=== PATIENT | female | born 1965 | race Caucasian/White ===

== ENCOUNTER 2022-05-02 15:13 | Emergency (ER) | payer OTHER ==
--- NOTE | 2022-05-02 16:07 | EDPHYS ---
Physician Documentation [facility] Name: Johnny Yo Age: 57 yrs Sex: Female : 1965 Arrival Date: 05/02/2022 Time: 15:16 Bed Waiting Private MD: ADRIANA Physician Vish Burgess HPI: 05/02 19:44 This 57 yrs old Female presents to ER via Ambulatory with complaints of Toothache. kb 19:44 The patient presents with pain, redness, swelling. The problem is located in the upper kb left second molar (#15) and upper left first molar (#14). Onset: The symptoms/episode began/occurred 2 day(s) ago. Duration: The symptoms are continuous. Modifying factors: The symptoms are alleviated by nothing, the symptoms are aggravated by nothing. Associated signs and symptoms: Pertinent positives: pain, redness in area, swelling. Severity of symptoms: At their worst the symptoms were moderate, in the emergency department the symptoms are unchanged. The patient has not experienced similar symptoms in the past. The patient has not recently seen a physician. 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 - Social history:: Smoking status: Reported history of juuling and/or vaping. ROS: 19:44 Constitutional: Negative for fever, chills, and weight loss. kb 19:44 ENT: Positive for dental pain. 19:44 All other systems are negative. Exam: 19:44 Constitutional: This is a well developed, well nourished patient who is awake, alert, kb and in no acute distress. Head/Face: Normocephalic, atraumatic. Respiratory: Respirations even and unlabored. No increased work of breathing. Talking in full sentences Skin: Warm, dry with normal turgor. Normal color. MS/ Extremity: Pulses equal, no cyanosis. Neurovascular intact. Full, normal range of motion. Neuro: Awake and alert, GCS 15, oriented to person, place, time, and situation. Moves all extremities. Normal gait. Psych: Awake, alert, with orientation to person, place and time. Behavior, mood, and affect are within normal limits. 19:44 ENT: Dental exam: dental caries, gum swelling, pain, that is moderate, specifically in the upper left first molar (#14) and upper left second molar (#15). Vital Signs: 15:23 BP 158 / 94; Pulse 77; Resp 17; Temp 97.9; Pulse Ox 100% ; Weight 61.23 kg; Height 5 ap3 ft. 5 in. (165.10 cm); Pain 8/10; 15:23 Body Mass Index 22.46 (61.23 kg, 165.10 cm) ap3 MDM: 16:06 Patient medically screened. kb 19:43 Data reviewed: vital signs, nurses notes. Data interpreted: Pulse oximetry: on room air kb is 100 %. Interpretation: normal. Counseling: I had a detailed discussion with the patient and/or guardian regarding: the historical points, exam findings, and any diagnostic results supporting the discharge/admit diagnosis, the need for outpatient follow up, a dentist, to return to the emergency department if symptoms worsen or persist or if there are any questions or concerns that arise at home. Administered Medications: 16:11 Drug: Augmentin (Amoxicillin-Clavulanate) 875 mg Route: PO; ap3 16:11 Drug: Ketorolac 30 mg Route: IM; Site: right deltoid; ap3 Disposition Summary: 05/02/22 16:06 Discharge Ordered Location: Home kb Condition: Stable kb Diagnosis - Periapical abscess without sinus kb Followup: kb - With: Emergency Department - When: As needed - Reason: Worsening of condition Followup: kb - With: Private Physician - When: 2 - 3 days - Reason: Recheck today's complaints, Continuance of care, Re-evaluation by your physician Discharge Instructions: - Discharge Summary Sheet kb - Dental Pain, [id number] kb - Dental Abscess, [id number] kb Forms: - Medication Reconciliation Form kb - Thank You Letter kb - Antibiotic Education kb - Prescription Opioid Use kb Prescriptions: - Augmentin 875-125 mg Oral Tablet - take 1 tablet by ORAL route every 12 hours for 10 days; 20 tablet; Refills: 0, kb Product Selection Permitted - Diclofenac Sodium 75 mg Oral tablet,delayed release (DR/EC) - take 1 tablet by ORAL route 2 times per day As needed; 30 tablet; Refills: 0, kb Product Selection Permitted Signatures: Dariana Cruz, TRAINS SERVICE CONDUCTOR-C TRAINS SERVICE CONDUCTOR-Ckb Jeanie Napoles, RN RN ap3
--- NOTE | 2022-05-02 16:07 | ER ---
Nurse's Notes [facility] Name: Johnny Yo Age: 57 yrs Sex: Female : 1965 Arrival Date: 05/02/2022 Time: 15:16 Bed Waiting Private MD: Diagnosis: Periapical abscess without sinus Presentation: 05/02 15:23 Chief complaint: Patient states: she has been experiencing pain from a broken/abscessed ap3 tooth for 2 days now. Patient states it is on the right upper side of her mouth. Coronavirus screen: At this time, the client does not indicate any symptoms associated with coronavirus-19. Ebola Screen: No symptoms or risks identified at this time. Initial Sepsis Screen: Does the patient meet any 2 criteria? No. Patient's initial sepsis screen is negative. Does the patient have a suspected source of infection? No. Patient's initial sepsis screen is negative. Risk Assessment: Do you want to hurt yourself or someone else? Patient reports no desire to harm self or others. Onset of symptoms was April 30, 2022. 15:23 Method Of Arrival: Ambulatory ap3 15:23 Acuity: KAVEH 4 ap3 Triage Assessment: 15:25 General: Appears uncomfortable, Behavior is anxious, restless. Pain: Complains of pain ap3 in mouth Pain currently is 8 out of 10 on a pain scale. at worst was 10 out of 10 on a pain scale. Pain began gradually, 2-3 days ago. EENT: Reports pain in mouth. Neuro: Level of Consciousness is awake, alert, obeys commands, Oriented to person, place, time, situation, Appropriate for age Gait is steady, Speech is normal. Cardiovascular: Patient's skin is warm and dry. Respiratory: Airway is patent Respiratory effort is even, unlabored, Respiratory pattern is regular, symmetrical. 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 - Social history:: Smoking status: Reported history of juuling and/or vaping. Screenin:26 Abuse screen: Denies threats or abuse. Nutritional screening: No deficits noted. ap3 Tuberculosis screening: No symptoms or risk factors identified. 16:04 Fall Risk None identified. ap3 Vital Signs: 15:23 BP 158 / 94; Pulse 77; Resp 17; Temp 97.9; Pulse Ox 100% ; Weight 61.23 kg; Height 5 ap3 ft. 5 in. (165.10 cm); Pain 8/10; 15:23 Body Mass Index 22.46 (61.23 kg, 165.10 cm) ap3 ED Course: 15:16 Patient arrived in ED. ja2 15:25 Triage completed. ap3 15:26 Arm band placed on left wrist. ap3 15:48 Dariana Cruz FNP-C is PHCP. kb 15:48 Vish Burgess MD is Attending Physician. kb 16:04 Patient has correct armband on for positive identification. Pulse ox on. NIBP on. ap3 16:04 No provider procedures requiring assistance completed. Patient did not have IV access ap3 during this emergency room visit. Administered Medications: 16:11 Drug: Augmentin (Amoxicillin-Clavulanate) 875 mg Route: PO; ap3 16:11 Drug: Ketorolac 30 mg Route: IM; Site: right deltoid; ap3 Medication: 16:04 VIS not applicable for this client. ap3 Outcome: 16:06 Discharge ordered by . kb 16:14 Discharged to home ambulatory. ap3 16:14 Condition: good 16:14 Discharge instructions given to patient, Instructed on discharge instructions, follow up and referral plans. Demonstrated understanding of instructions, follow-up care, medications, Prescriptions given X 2. 16:14 Patient left the ED. ap3 Signatures: Dariana Cruz FNP-C FNP-Ckb Prokisch, Amanda, RN RN ap3 Brigitte Sheehan ja2
[2022-05-02] MEDS ORDERED: KETOROLAC 30 MG/ML INJ ONE (16:13)
[2022-05-02] MEDS ORDERED: AMOX/K CLAV 875 MG TAB ONE (16:15)
[2022-05-02 16:55] VITALS: BP 158/94; TEMP 97.9; O2SAT 100
== END 2022-05-02 16:14 | disposition home or self-care (01) ==
LOC: ER 15:13
DX: K04.7 Periapical abscess without sinus (principal); Z88.8 Allergy status to other drugs, medicaments and biological substances
CPT/HCPCS: 96372; 99283

== ENCOUNTER 2022-12-08 18:08 | Emergency (ER) | payer OTHER ==
--- OUTSIDE RECORDS SUMMARY | 2022-12-08 18:11 | XMS REPORT | Continuity of Care Document ---
:1965 Author Organization [facility] t Address [address] [place] [address] Care Team Providers Name Role Phone [facility] Primary Care Physician KYRIE HURST Attending Clinician Unavailable Jewels Alvarado PA-C Attending Clinician Kyrie Mireles Attending Clinician Nataliia Us RN Attending Clinician Bryn Lechuga DO Attending Clinician ADELAIDE JORDAN Attending Clinician Unavailable EDUARDO COTTER Attending Clinician Unavailable Payers Payer Name Policy Type Policy Number Effective Date Expiration Date S [facility] [id number] 2017 00:00:00 PLUS Problems Condition Condition Condition Status Onset Resolution Last Treating Co mments Source Name Details Category Date Date Treatment Clinician Date Traumatic Traumatic Disease Active Overview: Univers rupture of rupture of 07-09 Form[place] ity of tendon of tendon of 00:00: g of this [place] thumb, thumb, 00 note Medical right, right, might be Branch initial initial different encounter encounter from the original. Added automatic ally from request for surgery [id number] Other Other Disease Active Overview: Univer s closed closed 8-17 Formattin ity of intra-hussein intra-hussein 00:00: g of this [place] cular cular 00 note Medical fracture fracture might be Bran ch of distal of distal different end of end of from the right right original. radius, radius, Added initial initial automatic encounter encounter ally from request for surgery [id number] Allergies, Adverse Reactions, Alerts Allergy Allergy Status Severity Reaction(s) Onset Inactive Treating Comm ents Source Name Type Date Date Clinician Iodine Propensi Active 2016-[address] [facility] adverse [facility]: Medical Containi reaction 00 [place] ng s Products Iodine Propensi Active Anaphylaxis Uni vers ty to 04-26 ity of adverse 00:00: [place] reaction 00 Medical s Branch IODINE DRUG Active Anaphylaxis Unive rs INGREDI 04-26 ity of 00:00: [place] 00 [facility] Social History Social Habit Start Date Stop Date Quantity Comments Source Exposure to 2022-04-27 2022-05-07 Not sure [facility] SARS-CoV-2 00:00:00 20:56:00 [facility] (event) [place] Tobacco use and 2017-08-20 2017-08-[address] [facility] exposure 00:00:00 00:00:00 [facility] Alcohol intake 2017-08-20 2017-08-[address] [facility] 00:00:00 00:00:00 non-drinker of [facility] nter alcohol (finding) Sex Assigned At [address] [facility] 00:00:00 00:00:00 [facility] Smoking Status Start Date Stop Date Source Never smoker [facility] Light tobacco smoker 2017-07-10 00:00:00 [facility] ity of [place] [facility] Medications Ordered Filled Start Stop Current Ordering Indication Dosage Frequency Signature Comments Components Source Medication Medication Date Date Medication? Clinician (SIG) Name Name amoxicillin Yes Take by Uni vers /potassium 05-07 mouth. ity of clav 20:55: [place] (AUGMENTIN 42 Medical ORAL) [place] dicyclomine 2020- No 20mg 20 mg, Uni vers (BENTYL) 05-29 Oral, ity of tablet 20 19:30: 19:30 ONCE, 1 [place] mg 00 :00 dose, [facility] Medical 05/29/20 at Branch 1430, Routine ondansetron Yes [id number] 4mg Take 1 Univers 4 mg 05-29 08 tablet by ity of disintegrat 00:00: mouth [place] ing tablet 00 every 8 Medica l (eight) Branch hours as needed for Nausea and Vomiting (N/V). ondansetron 2019-0 Yes [id number] 4mg Take 1 Univers 4 mg 7-27 08 tablet by ity of disintegrat 00:00: mouth [place] ing tablet 00 every 8 Medica l (eight) Branch hours as needed for Nausea and Vomiting (N/V). ondansetron 2019-0 Yes [id number] 4mg Take 1 Univers 4 mg 7-27 08 tablet by ity of disintegrat 00:00: mouth [place] ing tablet 00 every 8 Medica l (eight) Branch hours as needed for Nausea and Vomiting (N/V). ESCITALOPRA 2017-0 Yes Take by Uni vers M OXALATE 5-21 mouth. ity of (LEXAPRO 01:32: [place] ORAL) 28 Medical Branch ESCITALOPRA 2017-0 Yes Take by Uni vers M OXALATE 5-21 mouth. ity of (LEXAPRO 01:32: [place] ORAL) 28 Medical Branch DULOXETINE 2017-0 Yes Take by Univ ers HCL 5-21 mouth. ity of (CYMBALTA 01:30: [place] ORAL) 39 Medical Branch FLUoxetine Yes 40mg Take 40 mg U nivers (PROZAC) 40 5-21 by mouth ity of mg capsule 01:30: daily. [place] [address] Medical Branch QUETIAPINE 0 Yes Take by Univ ers FUMARATE 5-21 mouth as ity of (SEROQUEL 01:30: needed. [place] ORAL) 39 Medical Branch gabapentin 0 Yes 900mg Take 900 Un mady 300 mg 5-21 mg by ity of capsule 01:30: mouth 3 [place] [address] (three) Medical times Branch daily. DULOXETINE 2017-0 Yes Take by Univ ers HCL 5-21 mouth. ity of (CYMBALTA 01:30: [place] ORAL) 39 Medical Branch FLUoxetine 0 Yes 40mg Take 40 mg U nivers (PROZAC) 40 5-21 by mouth ity of mg capsule 01:30: daily. [place] [address] Medical Branch QUETIAPINE 2017-0 Yes Take by Univ ers FUMARATE 5-21 mouth as ity of (SEROQUEL 01:30: needed. [place] ORAL) 39 Medical Branch gabapentin 2017-0 Yes 900mg Take 900 Un mady 300 mg 5-21 mg by ity of capsule 01:30: mouth 3 [place] [address] (three) Medical times Branch daily. ESCITALOPRA 2018-0 Yes Take by Uni vers M OXALATE 5-20 mouth. ity of (LEXAPRO 20:32: [place] ORAL) 28 Medical Branch gabapentin 2017-0 Yes 900mg Take 900 Un mady 300 mg 5-20 mg by ity of capsule 20:30: mouth 3 [place] [address] (three) Medical times Branch daily. DULOXETINE 2017-0 Yes Take by [facility] ers HCL 5-20 mouth. ity of (CYMBALTA 20:30: [place] ORAL) 39 Medical Branch FLUoxetine Yes 40mg Take 40 mg U nivers (PROZAC) 40 5-20 by mouth ity of mg capsule 20:30: daily. [place] [address] Medical Branch QUETIAPINE 2017-0 Yes Take by [facility] ers FUMARATE 5-20 mouth as ity of (SEROQUEL 20:30: needed. [place] ORAL) 39 Medical Branch Sumatriptan 2016-11 Yes 6mg SQ at U nivers Succinate 6 1-10 the onset ity of mg/0.5 mL 00:00: of [place] NfIj 00 headache. Medical Okay to Branch repeat after 1 hour ZOLMitripta 2016-11 Yes 1 spray in Univers n 5 mg 1-10 1 nostril ity of nasal 00:00: at the [place] solution 00 onset of Medical headache. Branch Repeat once after 2 hours if needed Sumatriptan 2016-11 Yes 6mg SQ at U nivers Succinate 6 1-10 the onset ity of mg/0.5 mL 00:00: of [place] NfIj 00 headache. Medical Okay to Branch repeat after 1 hour ZOLMitripta 2016-11 Yes 1 spray in Univers n 5 mg 1-10 1 nostril ity of nasal 00:00: at the [place] solution 00 onset of Medical headache. Branch Repeat once after 2 hours if needed Sumatriptan 2016-11 Yes 6mg SQ at U nivers Succinate 6 1-10 the onset ity of mg/0.5 mL 00:00: of [place] NfIj 00 headache. Medical Okay to Branch repeat after 1 hour ZOLMitripta 2016-11 Yes 1 spray in Univers n 5 mg 1-10 1 nostril ity of nasal 00:00: at the [place] solution 00 onset of Medical headache. Branch Repeat once after 2 hours if needed HYDROcodone 2017-0 Yes 1{tbl} Take 1 Un mady -acetaminop 9-08 tablet by ity of hen (NORCO) 00:00: mouth [place] 10-325 mg 00 every 6 Medical tablet (six) Branch hours as needed for Pain (scale 4-6) or Pain (scale 7-10). HYDROcodone Yes 1{tbl} Take 1 Un mady -acetaminop 9-08 tablet by ity of hen (NORCO) 00:00: mouth [place] 10-325 mg 00 every 6 Medical tablet (six) Branch hours as needed for Pain (scale 4-6) or Pain (scale 7-10). HYDROcodone Yes 1{tbl} Take 1 Un mady -acetaminop 9-08 tablet by ity of hen (NORCO) 00:00: mouth [place] 10-325 mg 00 every 6 Medical tablet (six) Branch hours as needed for Pain (scale 4-6) or Pain (scale 7-10). Vital Signs Vital Name Observation Time Observation Value Comments Source Systolic blood 2022-05-08 01:57:00 145 [facility]Hg[facility] 2022-05-08 01:57:00 82 mm[Hg] Unive [facility] [place] Heart rate 2022-05-08 01:57:00 86 /min [facility] Body temperature 2022-05-08 01:57:00 36.72 Ashia [facility] Respiratory rate 2022-05-08 01:57:00 18 /min [facility] Body height 2022-05-08 01:57:00 157.5 cm [facility] Body weight 2022-05-08 01:57:00 62.596 kg [facility] BMI 2022-05-08 01:57:00 25.24 kg/m2 [facility] Oxygen saturation in 2022-05-08 01:57:00 98 /min [facility] Arterial blood by [facility] Pulse oximetry Branch Systolic blood 2020-05-29 20:00:00 129 mm[Hg] [facility] Diastolic blood 2020-05-29 20:00:00 97 mm[Hg] Unive [facility] [place] Heart rate 2020-05-29 20:00:00 68 /min [facility] Respiratory rate 2020-05-29 20:00:00 17 /min [facility] Oxygen saturation in 2020-05-29 20:00:00 100 /min [facility] Arterial blood by [facility] Pulse oximetry [place] Body temperature 2020-05-29 18:01:00 36.5 Ashia [facility] Body height 2020-05-29 18:01:00 165.1 cm [facility] Body weight 2020-05-29 18:01:00 58.968 kg [facility] BMI 2020-05-29 18:01:00 21.63 kg/m2 [facility] Procedures Procedure Date / Time Performed Performing Clinician Sour e URINALYSIS 2020-05-29 19:36:00 Singer [facility] COVID-19 (ID NOW RAPID 2020-05-29 18:30:00 Bryn Lechuga [facility] TESTING) [facility] LIPASE 2020-05-29 18:29:00 Singer [facility] COMP. METABOLIC PANEL 2020-05-29 18:29:00 Bryn Lechuga sity [facility] [place] ([id number]) [facility] CBC WITH DIFF 2020-05-29 18:29:00 [facility] Encounters Start End Encounter Admission Attending Care Care Encounter Source Date/Time Date/Time Type Type Clinicians Facility Department ID 2021-08-31 Emergency [facility] [id number] Univers 09:02:02 ity [facility] 2022-05-07 2022-05-07 Outpatient Cielo HURST [facility] [id number] Univers 20:45:00 21:01:57 KYRIE ity [facility] 2022-05-07 2022-05-07 Urgent Jewels Alvarado [id number] Univers 20:45:00 21:01:57 Kyrie Cody PEDIATRIC [id number] ity of [place]2.686 [place] AD[place] [id number] [facility] PRIMARY 370 Branch CARE CLINIC 2020-05-30 2020-05-30 Patient Edgardo Us [id number] Univers 00:00:00 00:00:00 Outreach Nataliia Wahl [id number] ity of [place] [id number] [facility] 403 [place] 2020-05-29 2020-05-29 Emergency [facility] [id number] Univers 13:01:03 15:39:00 Bryn Duran [id number] i ty of [place] 4[place].2.686 [place] [id number] [facility] 084 [place] 2020-01-05 2020-01-05 Outpatient R JULIAN [facility] [id number] Univers 15:00:00 15:00:00 , ADELAIDE it y [facility] 2020-01-03 2020-01-03 Outpatient R EDUARDO COTTER [facility] [id number] Univers 14:00:00 14:00:00 [facility] 2019-12-29 2019-12-29 Outpatient R EDUARDO COTTER [facility] [id number] Univers 10:00:00 10:00:00 [facility] Results Test Description Test Time Test Comments Results Result Comments Source URINALYSIS 2020-05-29 19:59:00 Test Item Value Reference Range Interpretation Comme nts APPEARANCE (test code = Clear Clear 3355810821) COLOR (test code = 6505786566) Yellow Yellow PH (test code = 0178401930) 4.8-8.0 SP GRAVITY (test code = 1.003-1.030 3387926593) GLU U QUAL (test code = Normal Normal 0606863094) BLOOD (test code = 7318712412) 2+ Negative A KETONES (test code = 5186243635) Negative Negative PROTEIN (test code = 2887-8) Negative Negative UROBILIN (test code = Normal Normal 9459596063) BILIRUBIN (test code = Negative Negative 1845059513) NITRITE (test code = 5542696117) Positive Negative A LEUK FREDRICK (test code = Negative Negative 4237175415) RBC/HPF (test code = 1986880048) See_Comment [Automated message] The system which ge nerated this result transmit margaret reference range: 0 - 3 HP F. The reference range was not used to interpret th is result as normal/abnormal . WBC/HPF (test code = 6481769728) <1 See_Comment [Automated message] The system which [employer] nerated this result transmit margaret reference range: 0 - 5 HP F. The reference range was not used to interpret th is result as normal/abnormal . BACTERIA (test code = Many Negative A 2755777034) MUCOUS (test code = 2543411840) Slight Negative LPF A SQ EPITH (test code = <1 HPF 4458572969) Lab Interpretation (test code = Abnormal 19666-1) [facility] WITH [id number] 19:49:00 Test Item Value Reference Range Interpretation Comments WBC (test code = See_Comment [Automated 4290-2) message] The sy stem which generated this result transmitted reference range : 4.30 - 11.10 10*3/?L. The reference range was not used to interpret this result as normal/abnormal . RBC (test code = See_Comment [Automated 819-8) message] The sy stem which generated this result transmitted reference range : 3.93 - 5.25 10*6/?L. The reference range was not used to interpret this result as normal/abnormal . HGB (test code = 14.0 g/dL 11.6-15 718-7) HCT (test code = 41.5 % 35.7-45.2 4544-3) MCV (test code = 86.3 fL 80.6-95.5 787-2) MCH (test code = 29.1 pg 25.9-32.8 785-6) MCHC (test code = 33.7 g/dL 31.6-35.1 786-4) RDW-SD (test code = 37.8 fL 39-49.9 L 50461-5) RDW-CV (test code = 11.9 % 12-15.5 L 788-0) PLT (test code = See_Comment [Automated 777-3) message] The sy stem which generated this result transmitted reference range : 166 - 358 10*3/ ?L. The reference r hugo was not used to interpret this result as normal/abnormal . MPV (test code = 10.1 fL 9.5-12.9 81435-5) NRBC/100 WBC (test See_Comment [Automat ed code = 3654706917) message] The system which generated this result transmitted reference range : 0.0 - 10.0 /100 WBCs. The refer ence range was not u sed to interpret th is result as normal/abnormal . NRBC x10^3 (test code <0.01 See_Comment [Auto mated = 1115875622) message] The s ystem which generated this result transmitted reference range : 10*3/?L. The reference range was not used to interpret this result as normal/abnormal . GRAN MAT (NEUT) % 50.9 % (test code = 770-8) IMM GRAN % (test code 0.30 % = 5740786480) LYMPH % (test code = 23.6 % 736-9) MONO % (test code = 22.2 % 5905-5) EOS % (test code = 2.3 % 713-8) BASO % (test code = 0.7 % 706-2) GRAN MAT x10^3(ANC) 2.93 10*3/uL 1.88-7.09 (test code = 5999500249) IMM GRAN x10^3 (test <0.03 0-0.06 code = 7398266542) LYMPH x10^3 (test code 1.36 10*3/uL 1.32-3.29 = 731-0) MONO x10^3 (test code 1.28 10*3/uL 0.33-0.92 H = 742-7) EOS x10^3 (test code = 0.13 10*3/uL 0.03-0.39 711-2) BASO x10^3 (test code 0.04 10*3/uL 0.01-0.07 = 704-7) BANDS (test code = Increased A 0087047366) Lab Interpretation Abnormal (test code = 61187-1) [facility]2020-05-29 19:31:00 Test Item Value Reference Range Interpretation Comments SARS-CoV-2 Rapid ID NOW Not Detected Not Detected (test code = 28494-4) MONTSE (test code = MONTSE) ID NOW COVID-19 Assay is an isothermal nucleic acid amplification test intended for the qualitative detection of nucleic acid from SARS-CoV-2 viral RNA in nasopharyngeal ([employer]) specimens. It is used under Emergency Use Authorization (EUA) by FDA. The limit of detection (LOD) of the assay is 125 Genome Equivalents/mL. A positive result is indicative of the presence of SARS-CoV-2 RNA. ?Clinical correlation with patient history and other diagnostic information is necessary to determine patient infection status. A negative (Not Detected) result does not preclude SARS-CoV-2 infection. In patients with clinical symptoms and other tests that are consistent with SARS-CoV-2 infection, negative results should be treated as presumptive negative and a new specimen should be tested with alternative PCR molecular test. Invalid: Please collect a new specimen for repeat patient testing if clinically indicated. Lab Interpretation Normal (test code = 90024-4) [facility]. METABOLIC PANEL (08670)2020-05-29 19:04:00 Test Item Value Reference Range Interpretation Comments NA (test code = 136 mmol/L 135-145 7798143573) K (test code = 4.0 mmol/L 3.5-5 0129794142) CL (test code = 102 mmol/L 98-108 9861150967) CO2 TOTAL (test code = 27 mmol/L 23-31 5729404135) AGAP (test code = 2-16 6078139052) BUN (test code = 17 mg/dL 7-23 4986565373) GLUCOSE (test code = 109 mg/dL 70-110 9296421736) CREATININE (test code 0.69 mg/dL 0.5-1.04 = 6896542279) TOTAL BILI (test code 0.2 mg/dL 0.1-1.1 = 5826354338) CALCIUM (test code = 8.9 mg/dL 8.6-10.6 9603711620) T PROTEIN (test code = 6.6 g/dL 6.3-8.2 8838997926) ALBUMIN (test code = 3.6 g/dL 3.5-5 2548758774) ALK PHOS (test code = 80 U/L 34-122 2271174654) ALTv (test code = 24 U/L 5-35 1742-6) AST(SGOT) (test code = 26 U/L 13-40 2578984924) eGFR Calculation mL/min/1.73m2 (Non-) (test code = 3731897649) eGFR Calculation mL/min/1.73m2 () (test code = 5185262278) MONTSE (test code = MONTSE) Association of Glomerular Filtration Rate (GFR) and Staging of Kidney Disease* + -+ + ---+| GFR (mL/min/1.73 m2) ?| With Kidney Damage ?| ?Without Kidney Damage+ -------+ ------+ ---------+| ?>90 ?| ?Stage one ?| ? Normal ?+ --+ -+ ----+| ?60-89 ?| ?Stage two ?| ? Decreased GFR ? + -+ + ---+| ?30-59 ?| ?Stage three ?| ? Stage three ? + -+ + ---+| ?15-29 ?| ?Stage four ? | ? Stage four ?+ --+ -+ ----+| ?<15 (or dialysis) ? ?| ?Stage five ? | ? Stage five ?+ --+ -+ ----+ *Each stage assumes the associated GFR level has been in effect for at least three months. ?Stages 1 to 5, with or without kidney disease, indicate chronic kidney disease. Notes: Determination of stages one and two (with eGFR >59mL/min/1.73 m2) requires estimation of kidney damage for at least three months as defined by structural or functional abnormalities of the kidney, manifested by either:Pathological abnormalities or Markers of kidney damage (including abnormalities in the composition of the blood or urine or abnormalities in imaging tests). [facility]00 Test Item Value Reference Range Interpretation Comments LIPASE (test code = 0560889557) 28 U/L 0-220 Lab Interpretation (test code = Normal 62253-6) [facility]"
[2022-12-08] MEDS ORDERED: PROMETHAZINE INJ 25 MG/ML AMP ONE (18:23)
[2022-12-08] MEDS ORDERED: KETOROLAC 30 MG/ML INJ ONE ×2 (18:23→20:38)
[2022-12-08 19:43] LABS: Absolute Lymphocytes (CBC) 1.5 K/uL (0.7-4.9); Hematocrit 38.6 % (36.0-45.0); Lymphocytes % 11.4 % (15.3-44.8); MCV 86.1 fL (80-100); RBC Red Blood Cell Count 4.49 M/uL (3.86-4.86)
[2022-12-08 20:02] LABS: Albumin 3.5 g/dL (3.4-5.0); Bilirubin Total 0.3 mg/dL (0.2-1.0); Potassium 3.9 mmol/L (3.5-5.1); Protein, Total 7.8 g/dL (6.4-8.2)
--- NOTE | 2022-12-08 20:29 | RAD REPORT ---
EXAM DESCRIPTION: CT - Head Brain Wo Cont - 12/08/2022 8:19 pm CLINICAL HISTORY: headache, vomiting COMPARISON: Head Brain Wo Cont dated 08/19/2017 TECHNIQUE: Axial 5 mm thick images of the head were obtained without IV contrast. All CT scans are performed using dose optimization technique as appropriate and may include automated exposure control or mA/KV adjustment according to patient size. FINDINGS: No intracranial hemorrhage, mass, edema or shift of mid-line structures. No acute infarcti on changes seen. No abnormal extra-axial fluid collections. Ventricles are normal. Mastoid air cells are clear. Frontal sinuses, sphenoid sinus and left maxillary sinus are clear. Left side ethmoid air cells are clear. There is patchy mucosal thickening in the right-side ethmoid air c ells. There is complete opacification of the partially imaged right maxillary sinus. No gross bone ab normality seen. The floor of the sinus at the maxilla is not imaged. No acute bony findings. IMPRESSION: No intracranial abnormality identified. Complete opacification of a partially imaged right maxillary sinus. No chronic sinusitis changes to t he maria of the sinus. Sinus changes are potentially related to the surgery. Site recent oral surgery or is not delineated. Acute sinusitis is not excluded.
[2022-12-08] MEDS ORDERED: DIPHENHYDRAMINE 50 MG/ML VIAL ONE (20:38)
[2022-12-08] MEDS ORDERED: NA CHLORIDE 0.9% 1,000 ML ONE (20:38)
[2022-12-08] MEDS ORDERED: METOCLOPRAMIDE 10 MG/2mL INJ ONE (20:38)
[2022-12-08] MEDS ORDERED: CLINDAMYCIN 900MG/D5W 900 MG/50 ML IVPB IV ONE (20:47)
[2022-12-08] MEDS ORDERED: CEFTRIAXONE 2000 MG/VIAL ONE (20:47)
--- NOTE | 2022-12-08 21:08 | EDPHYS ---
Physician Documentation [facility] Name: Johnny Yo Age: 57 yrs Sex: Female : 1965 Arrival Date: 12/08/2022 Time: 18:09 Bed 24 Private MD: ED Physician Vish Burgess HPI: 12/08 18:18 This 57 yrs old Female presents to ER via Wheelchair with complaints of Post Surgical jmm Pain, Vomiting. 18:18 The patient presents to the emergency department with nausea, vomiting. Onset: The jmm symptoms/episode began/occurred gradually, 3 week(s) ago. Is a 57-year-old female with history of cluster headaches that presents emerged part with complaints of vomiting, dental pain symptoms have been intermittent for the past 3 weeks since a dental procedure was performed. Denies fever, denies abdominal pain. Patient states that the dental pain triggers her migraines which causes the vomiting.. Historical: - Allergies: 18:15 iodine contrast; ll1 - PMHx: 18:15 abscessed tooth; Arthritis; cluster headaches; ll1 - PSHx: 18:15 nasal area reconstruction; ll1 - Immunization history:: Adult Immunizations up to date. - Social history:: Smoking status: Patient denies any tobacco usage or history of. ROS: 18:18 Constitutional: Negative for fever, chills, and weight loss, Cardiovascular: Negative jmm for chest pain, palpitations, and edema, Respiratory: Negative for shortness of breath, cough, wheezing, and pleuritic chest pain. 18:18 Abdomen/GI: Positive for vomiting. 18:18 Neuro: Positive for headache. 18:18 All other systems are negative. Exam: 18:18 Constitutional: This is a well developed, well nourished patient who is awake, alert, jmm and in no acute distress. Head/Face: atraumatic. Eyes: EOMI, no conjunctival erythema appreciated ENT: Moist Mucus Membranes Neck: Trachea midline, Supple Chest/axilla: Normal chest wall appearance and motion. Cardiovascular: Regular rate and rhythm. No edema appreciated Respiratory: Normal respirations, no respiratory distress appreciated Abdomen/GI: Non distended Back: Normal ROM Skin: General appearance color normal MS/ Extremity: Moves all extremities, no obvious deformities appreciated, no edema noted to the lower extremities Neuro: Awake and alert Psych: Behavior is normal, Mood is normal, Patient is cooperative and pleasant Vital Signs: 18:13 BP 155 / 97; Pulse 66; Resp 20; Temp 97.9; Pulse Ox 100% ; Pain 8/10; ll1 20:33 BP 153 / 94; Pulse 66; Resp 19; Temp 97.7; Pulse Ox 100% ; Weight 61.23 kg; Height 5 rv1 ft. 5 in. (165.10 cm); Pain 4/10; 20:33 Body Mass Index 22.46 (61.23 kg, 165.10 cm) rv1 MDM: 18:22 Patient medically screened. [facility] 19:54 Patient medically screened. [facility] 12/08 18:40 Order name: CBC with Diff; Complete Time: 19:51 [facility] 12/08 18:40 Order name: CMP; Complete Time: 20:37 [facility] 12/08 18:40 Order name: Lipase; Complete Time: 20:37 [facility] 12/08 18:49 Order name: CT Head Brain wo Cont; Complete Time: 20:37 [facility] 12/08 18:40 Order name: IV Saline Lock; Complete Time: 19:25 [facility] 12/08 18:40 Order name: Labs collected and sent; Complete Time: 19:25 [facility] 12/08 19:56 Order name: Oxygen: 2 liters; Complete Time: 20:48 [facility] Administered Medications: 18:23 Drug: Promethazine 25 mg Route: IM; Site: left vastus lateralis; ll1 22:23 Follow up: Response: No adverse reaction lg3 18:23 Drug: Ketorolac 30 mg Route: IM; Site: left gluteus; ll1 22:23 Follow up: Response: No adverse reaction lg3 20:42 Drug: NS 0.9% 1000 ml Route: IV; Rate: 1 bolus; Site: left antecubital; lg3 20:42 Drug: Benadryl (diphenhydrAMINE) 50 mg Route: IVP; Site: left antecubital; lg3 22:23 Follow up: Response: No adverse reaction lg3 20:42 Drug: Reglan (metoCLOPramide) 10 mg Route: IVP; Site: left antecubital; lg3 22:23 Follow up: Response: No adverse reaction lg3 20:42 Drug: Ketorolac 15 mg Route: IVP; Site: left antecubital; lg3 22:23 Follow up: Response: No adverse reaction lg3 20:48 Drug: Rocephin (cefTRIAXone) 2 grams Route: IV; Rate: per protocol; Site: left lg3 antecubital; 22:23 Follow up: IV Status: Completed infusion; IV Intake: 50ml lg3 20:48 Drug: Clindamycin 900 mg Route: IVPB; Infused Over: 30 mins; Site: right antecubital; lg3 22:22 Follow up: Response: No adverse reaction; IV Status: Completed infusion; IV Intake: [id number] Disposition Summary: 12/08/22 21:08 Discharge Ordered Location: Home derick Problem: new derick Symptoms: have improved derick Condition: Stable derick Diagnosis - Acute maxillary sinusitis derick - Other dental procedure status derick - Migraine without aura, not intractable derick - Elevated white blood cell count derick Followup: derick - With: Private Physician - When: 2 - 3 days - Reason: Recheck today's complaints, Continuance of care, Re-evaluation by your physician Followup: derick - With: Cali Braswell DDS - When: 2 - 3 days - Reason: Recheck today's complaints, Re-evaluation by your physician Discharge Instructions: - Discharge Summary Sheet derick - Dental Extraction derick - Migraine Headache derick - Migraine Headache, Przk-tb-Bsts derick - Sinusitis, Adult derick - Sinusitis, Adult, Ewls-ko-Cboi derick - Dental Extraction, Care After derick Forms: - Medication Reconciliation Form derick - Thank You Letter derick - Antibiotic Education derick - Prescription Opioid Use derick Prescriptions: - Clindamycin HCl 300 mg Oral Capsule - take 1 capsule by ORAL route every 6 hours for 10 days; 40 capsule; Refills: 0, [facility] Product Selection Permitted - Zofran 4 mg Oral Tablet - take 1 tablet by ORAL route every 12 hours As needed; 20 tablet; Refills: 0, [facility] Product Selection Permitted Signatures: Dispatcher [employer] Vish Ceballos MD MD cha Mickail, Joel, PA PA jmm Gibson, Lacie RN RN lg3 Cosmo Vincent RN RN ll1
--- NOTE | 2022-12-08 21:08 | ER ---
Nurse's Notes [facility] Name: Johnny Yo Age: 57 yrs Sex: Female : 1965 Arrival Date: 12/08/2022 Time: 18:09 Bed 24 Private MD: Diagnosis: Acute maxillary sinusitis;Other dental procedure status;Migraine without aura, not intractable;Elevated white blood cell count Presentation: 12/08 18:13 Chief complaint: Patient states: Oral surgery 2 weeks ago. Nasal cavity pain and ll1 reconstruction since. She has had N/V and severe migraines today. No fevers. Coronavirus screen: Client denies travel out of the [place] in the last 14 days. At this time, the client does not indicate any symptoms associated with coronavirus-19. Ebola Screen: Patient denies travel to an Ebola-affected area in the 21 days before illness onset. Initial Sepsis Screen: Does the patient meet any 2 criteria? No. Patient's initial sepsis screen is negative. Does the patient have a suspected source of infection? Yes: S/S of meningitis or endocarditis. Risk Assessment: Do you want to hurt yourself or someone else? Patient reports no desire to harm self or others. Onset of symptoms was November 24, 2022. 18:13 Method Of Arrival: Wheelchair ll1 18:13 Acuity: KAVEH 3 ll1 Historical: - Allergies: 18:15 iodine contrast; ll1 - PMHx: 18:15 abscessed tooth; Arthritis; cluster headaches; ll1 - PSHx: 18:15 nasal area reconstruction; ll1 - Immunization history:: Adult Immunizations up to date. - Social history:: Smoking status: Patient denies any tobacco usage or history of. Screenin:48 [facility] ED Fall Risk Assessment (Adult) History of falling in the last 3 months, lg3 including since admission No falls in past 3 months (0 pts). Abuse screen: Denies threats or abuse. Denies injuries from another. Nutritional screening: No deficits noted. Tuberculosis screening: No symptoms or risk factors identified. Assessment: 20:48 General: Appears in no apparent distress. uncomfortable, Behavior is calm, cooperative. lg3 Pain: Complains of pain in mouth and head Pain currently is 9 out of 10 on a pain scale. Noted to be grimacing, resistant to movement. Neuro: No deficits noted. [place] Agitation-Sedation Scale (RASS): 0 - Alert and Calm Level of Consciousness is awake, alert, obeys commands, Oriented to person, place, time, situation. Cardiovascular: No deficits noted. Denies chest pain, shortness of breath, Capillary refill < 3 seconds Clubbing of nail beds is absent JVD is absent Patient's skin is warm and dry. Respiratory: No deficits noted. Airway is patent Trachea midline Respiratory effort is even, unlabored, Respiratory pattern is regular, symmetrical, Denies cough, shortness of breath. GI: No deficits noted. Abdomen is flat, non-distended, Reports nausea. : No deficits noted. No signs and/or symptoms were reported regarding the genitourinary system. EENT: No deficits noted. Derm: No deficits noted. No signs and/or symptoms reported regarding the dermatologic system. Skin is intact, is healthy with good turgor, Skin is dry, Skin is normal. Musculoskeletal: No deficits noted. No signs and/or symptoms reported regarding the musculoskeletal system. Circulation, motion, and sensation intact. Range of motion: intact in all extremities. 22:26 Reassessment: Patient appears in no apparent distress at this time. No changes from lg3 previously documented assessment. Patient and/or family updated on plan of care and expected duration. Pain level reassessed. Patient is alert, oriented x 3, equal unlabored respirations, skin warm/dry/pink. Patient states feeling better. Patient states symptoms have improved. Vital Signs: 18:13 BP 155 / 97; Pulse 66; Resp 20; Temp 97.9; Pulse Ox 100% ; Pain 8/10; ll1 20:33 BP 153 / 94; Pulse 66; Resp 19; Temp 97.7; Pulse Ox 100% ; Weight 61.23 kg; Height 5 rv1 ft. 5 in. (165.10 cm); Pain 4/10; 20:33 Body Mass Index 22.46 (61.23 kg, 165.10 cm) rv1 ED Course: 18:09 Patient arrived in ED. am2 18:14 [facility] Moon [facility] 18:14 Desmond Ballard MD is Attending Physician. [facility] 18:14 Triage completed. ll1 19:25 Inserted saline lock: 20 gauge in left antecubital area, using aseptic technique. Blood zm collected. 19:25 CBC with Diff Sent. zm 19:25 CMP Sent. zm 19:25 Lipase Sent. zm 19:54 Attending Physician role handed off by Desmond Ballard MD [facility] 19:54 Vish Burgess MD is Attending Physician. [facility] 20:21 CT Head Brain wo Cont In Process Unspecified. EDMS 20:48 Patient has correct armband on for positive identification. Placed in gown. Bed in low lg3 position. Call light in reach. Side rails up X 1. Client placed on continuous cardiac and pulse oximetry monitoring. NIBP monitoring applied. nurse monitoring on. Door closed. Noise minimized. Warm blanket given. Family accompanied patient. 21:07 Cali Braswell DDS is Referral Physician. [facility] Administered Medications: 18:23 Drug: Promethazine 25 mg Route: IM; Site: left vastus lateralis; ll1 22:23 Follow up: Response: No adverse reaction lg3 18:23 Drug: Ketorolac 30 mg Route: IM; Site: left gluteus; ll1 22:23 Follow up: Response: No adverse reaction lg3 20:42 Drug: NS 0.9% 1000 ml Route: IV; Rate: 1 bolus; Site: left antecubital; lg3 20:42 Drug: Benadryl (diphenhydrAMINE) 50 mg Route: IVP; Site: left antecubital; lg3 22:23 Follow up: Response: No adverse reaction lg3 20:42 Drug: Reglan (metoCLOPramide) 10 mg Route: IVP; Site: left antecubital; lg3 22:23 Follow up: Response: No adverse reaction lg3 20:42 Drug: Ketorolac 15 mg Route: IVP; Site: left antecubital; lg3 22:23 Follow up: Response: No adverse reaction lg3 20:48 Drug: Rocephin (cefTRIAXone) 2 grams Route: IV; Rate: per protocol; Site: left lg3 antecubital; 22:23 Follow up: IV Status: Completed infusion; IV Intake: 50ml lg3 20:48 Drug: Clindamycin 900 mg Route: IVPB; Infused Over: 30 mins; Site: right antecubital; lg3 22:22 Follow up: Response: No adverse reaction; IV Status: Completed infusion; IV Intake: [id number] Medication: 20:48 VIS not applicable for this client. lg3 Intake: 22:22 IV: 50ml; Total: 50ml. lg3 22:23 IV: 50ml; Total: 100ml. lg3 Outcome: 21:08 Discharge ordered by MD. sepulveda 22:26 Patient left the ED. lg3 Signatures: Dispatcher [employer] EDMS Vish Burgess MD MD cha Mickail, Joel, PA PA jmm Moreno, Amanda Adele Garcia RN RN lg3 Cosmo Vincent RN RN ll1 Bridgette Garcia Rebecca [facility]
[2022-12-08 22:41] VITALS: O2SAT 100
[2022-12-08 22:43] VITALS: BP 153/94; TEMP 97.7
== END 2022-12-08 22:26 | disposition home or self-care (01) ==
LOC: ER 18:08
DX: G43.009 Migraine without aura, not intractable, without status migrainosus (principal); J01.00 Acute maxillary sinusitis, unspecified; D72.829 Elevated white blood cell count, unspecified; Z98.818 Other dental procedure status
CPT/HCPCS: 85025; 36415; 83690; 80053; 70450; J2765; J2550; J1200; J7030; J0696; 96372; 99284